=== PATIENT | male | born 1970 | race Caucasian/White ===

== ENCOUNTER 2017-03-05 17:28 | Emergency (ER) | payer MEDICAID ==
[~2017-03-05] VITALS: Ht 180.3 cm; Wt 166.2 kg
[2017-03-05 17:31] VITALS: BP 129/89
[2017-03-05] MEDS ORDERED: DILT180C9 PO (18:00)
[2017-03-05] MEDS ORDERED: ESCI10TA PO (18:00)
[2017-03-05] MEDS ORDERED: ASPI-650 PO (18:00)
[2017-03-05] MEDS ORDERED: GLIP5TAB10 PO (18:01)
[2017-03-05] MEDS ORDERED: LISI-167 PO (18:01)
[2017-03-05] MEDS ORDERED: ATOR10TA9 PO (18:01)
[2017-03-05] MEDS ORDERED: COLCHICINE 0.6 MG TABLET PO STA (18:07)
[2017-03-05] MEDS ORDERED: COLCHICINE 0.6 MG TABLET PO SCH (19:15)
[2017-03-05] MEDS ORDERED: COLCHICINE 0.6 MG TABLET PO ONE (19:15)
== END 2017-03-05 19:47 | disposition home or self-care (01) ==
LOC: ED 19:45
DX: M10.072 Idiopathic gout, left ankle and foot (principal); B37.2 Candidiasis of skin and nail; E11.9 Type 2 diabetes mellitus without complications; I11.0 Hypertensive heart disease with heart failure; I50.9 Heart failure, unspecified
CPT/HCPCS: 99284